=== PATIENT | female | born 1980 | race Caucasian/White ===

== ENCOUNTER 2024-03-04 13:07 | Outpatient (CLI) | payer OTHER, SELFPAY ==
--- NOTE | ~2024-03-04 | MM_ITS ---
EXAMINATION: MM screening ivana BI w ritchie HISTORY: Screening mammogram TECHNIQUE: Craniocaudal and mediolateral oblique 3-D tomosynthesis images were obtained and synthetic 2-D images were generated. CAD analysis was submitted and interpreted. COMPARISON: No prior mammogram is available for comparison at this institution. BREAST PARENCHYMAL COMPOSITION:Dense: The breasts are extremely dense, which lowers the sensitivity o f mammography. FINDINGS: There is asymmetric density at the lower left breast on MLO view, possibly asymmetric fibro glandular tissue. No parenchymal or dural to the right breast seen. No suspicious mesenteric or calci fication. IMPRESSION: Inferior left breast asymmetry, possibly normal asymmetric fibroglandular tissue. Spot compression vi ews and possible ultrasound are advised. BI-RADS Category 0: Incomplete: Needs additional imaging evaluation. Reviewed, dictated and finalized at [facility]. IMPRESSION: Inferior left breast asymmetry, possibly normal asymmetric fibroglandular tissu e. Spot compression views and possible ultrasound are advised. BI-RADS Category 0: Incomplete: Needs additional imaging evaluation.
== END 2024-03-04 13:08 | disposition home or self-care (01) ==
LOC: CHSIMG 13:09
DX: Z12.31 Encounter for screening mammogram for malignant neoplasm of breast (principal); R92.8 Other abnormal and inconclusive findings on diagnostic imaging of breast
CPT/HCPCS: 77063; 77067

== ENCOUNTER 2024-03-22 10:16 | Outpatient (CLI) | payer OTHER, SELFPAY ==
--- NOTE | ~2024-03-22 | MMUS_ITS ---
EXAMINATION: MM diagnostic ivana LT w ritchie, US breast LT limited HISTORY: Follow-up left breast asymmetry TECHNIQUE: Additional 3-D tomosynthesis images of the left breast were performed and synthetic 2-D im ages were generated. CAD analysis was submitted and interpreted. High resolution Limited left breast ultrasound was performed. COMPARISON: 03/04/2024 BREAST PARENCHYMAL COMPOSITION: Dense: The breasts are extremely dense, which lowers the sensitivity of mammography. FINDINGS: MAMMOGRAPHIC FINDINGS: The area of asymmetry inferiorly in the left breast is less dense with spot compression views with no discrete mass identified on tomographic images. No suspicious calcifications or architectural distor tion. ULTRASOUND: Limited left breast ultrasound: Normal heterogeneous echotexture without focal solid or cystic mass. IMPRESSION: 1. No evidence for malignancy in the left breast. 2. Routine yearly screening mammogram and regular clinical breast examination are recommended. BI-RADS Category 1: Negative Reviewed, dictated and finalized at location [facility]. IMPRESSION: 1. No evidence for malignancy in the left breast. 2. Routine yearly screening mammogram and regular clinical breast examination a re recommended. BI-RADS Category 1: Negative
== END 2024-03-22 10:17 | disposition home or self-care (01) ==
DX: R92.8 Other abnormal and inconclusive findings on diagnostic imaging of breast (principal)
CPT/HCPCS: 76642; 77061; 77065; G0279

== ENCOUNTER 2025-05-05 14:16 | Outpatient (CLI) | payer OTHER, SELFPAY ==
--- NOTE | ~2025-05-05 | MM_ITS ---
EXAMINATION: MM screening ivana BI w ritchie HISTORY: Screening TECHNIQUE: Craniocaudal and mediolateral oblique 3-D tomosynthesis images were obtained and synthetic 2-D images were generated. CAD analysis was submitted and interpreted. COMPARISON: Comparison to multiple prior studies sequentially, with oldest reviewed study dated 03/04/2024. BREAST PARENCHYMAL COMPOSITION: Dense: The breasts are extremely dense, which lowers the sensitivity of mammography. FINDINGS: There is no evidence of suspicious mass, calcification, or architectural distortion to suggest malignancy in either breast. There has been no suspicious interval change. IMPRESSION: 1. No mammographic evidence of malignancy. 2. Recommend routine screening mammography in one year. BI-RADS Category 1: Negative Reviewed, dictated and finalized at location B. NING MANAGER
--- OUTSIDE RECORDS SUMMARY | 2025-05-05 18:43 | XMS_ITS | Encounter Summary ---
Author Organization [facility] Health Address [address] [place] [address] Care Team Providers Care Windows 7 Deployment Lead Name Role Phone Pcp, Unknown Primary Care Provider Arcadio Garcia MD Primary Care Provider [phone] Hong Cotton PA-C Primary Care Provider Encounter Details Date Type Department Care Team (Late st Contact Info) Description 08/16/2013 [facility] Unknown, Provider Social History Tobacco Use Types Packs/Day Years Used Date Smoking Tobacco: Former Alcohol Use Standard Drinks/Week Comments No 0 (1 standard drink = 0.6 oz pur e alcohol) Comments No Sex and Gender Information Value Date Recorded Sex Assigned at Female 06/29/2020 7:48 AM LEASE ANALYST Legal Sex Female 9:49 AM LEASE ANALYST Gender Identity Female 06/29/2020 7:48 AM LEASE ANALYST Sexual Orientation Straight 06/29/2020 7: 48 AM LEASE ANALYST documented as of this encounter Functional Status * Functional and Cognitive Status Question Answer Date of Assessment Author Is person deaf or have hilary us hearing difficulty? No 08/17/2013 7:37 PM Bertha Lara APRN-CNP Is person blind or have serious difficulty seeing? No 08/17/2013 7:37 PM LEASE ANALYST Clara Byrne APRN-CNP Does person have serious difficulty walking/climbing stairs? No 08/17/2013 7:37 PM LEASE ANALYST Bertha Byrne, SEMI TRUCK DRIVER-BUSINESS SYSTEMS ADMINISTRATOR Does person have difficulty dressing/bathing? No 08/17/2013 7:37 PM LEASE ANALYST Bertha Byrne, SEMI TRUCK DRIVER-BUSINESS SYSTEMS ADMINISTRATOR Does person have difficulty doing errands alone? No 08/17/2013 7:37 PM LEASE ANALYST Bertha Byrne, SEMI TRUCK DRIVER-BUSINESS SYSTEMS ADMINISTRATOR Does person have difficulty concentrating/remembering/deven ng decisions? No 08/17/2013 7:37 PM LEASE ANALYST Bertha Byrne, SEMI TRUCK DRIVER-BUSINESS SYSTEMS ADMINISTRATOR documented as of this encounter Plan of Treatment Not on file documented as of this encounter Visit Diagnoses Not on filedocumented in this encounter Additional Health Concerns Infection Onset Date Last Indicated Resolved Time COVID-19 Under Investigation 07/04/2021 07/04/2021 07/05/2021 7:20 AM LEASE ANALYST COVID-19 Confirmed 07/04/2021 07/04/2021 4:33 AM LEASE ANALYST documented as of this encounter Care Teams Windows 7 Deployment Lead Relationship Specialty Start Date End Date Pcp, Unknown [place] [address] PCP - General 08/09/13 Arcadio Bustamante MD [place] [address] PCP - General Family Medicine 12/24/13 02/19/21 Hong Cotton PA-C [address] [id number] PCP - General 02/20/21 documented as of this encounter
--- OUTSIDE RECORDS SUMMARY | 2025-05-05 18:43 | XMS_ITS | Clinical Summary ---
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 Family History Medical History Relation Comments Coronary artery disease Father Hypertension Father Relation Status Comments Father Social History Tobacco Use Types Packs/Day Years Used Date Smoking Tobacco: Former Smokeless Tobacco: Never Comments Unknown Sex and Gender Information Value Date Recorded Sex Assigned at Not on file Legal Sex Female 5:43 PM CDT Gender Identity Not on file Sexual Orientation Not on file Last Filed Vital Signs Vital Sign Reading Time Taken Comments Blood Pressure 124/74 11/25/2017 10:07 AM CDT Pulse 73 11/25/2017 10:07 AM CDT Temperature - - Respiratory Rate - - Oxygen Saturation - - Inhaled Oxygen Concentration - - Weight 60.8 kg (134 lb) 11/25/2017 10:07 AM CDT Height 160 cm (5' 3) 11/25/2017 10:07 AM CDT Body Mass Index 23.74 11/25/2017 10:07 AM CDT Plan of Treatment Health Maintenance Due Date Last Done Comments Cervical Cancer Screening Pa p Smear (Age 30 to 64) Every 3 Years 1982 Annual Physical 1985 Hepatitis C 2000 DTaP, Tdap and Td Vaccines ( 1 - Tdap) 2001 Hepatitis B Vaccines (1 of 3 - 19+ 3-dose series) 2001 HPV Vaccines (1 - 3-dose SCD M series) 2009 Cervical Cancer Screening Pa p with HPV Testing (Age 30 to 64) Every 5 Years 2012 Cervical Cancer Screening with HPV 2012 Mammogram Screening 2022 COVID-19 Vaccine (2024-2 6 season) 2025 Influenza Adult (#1) 2025 Hepatitis A Vaccines Aged Out No long er eligible based on patient's age to complete this topic Meningococcal B Vaccine Aged Out No l onger eligible based on patient's age to complete this topic Meningococcal Vaccine Aged Out No kevin truong eligible based on patient's age to complete this topic Pneumococcal Vaccine: Pediat rics (0 to 5 Years) and At-Risk Patients (6 to 49 Years) Aged Out No longer eligible b ased on patient's age to complete this topic RSV Immunizations Under 20 Months Aged Out No longer eligible based on patient's age to complete this topic Care Teams Machine Folder Relationship Specialty Start Date End Date Arcadio Bustamante MD PCP - General FAMILY PRACTICE 04/01/18
--- OUTSIDE RECORDS SUMMARY | 2025-05-05 18:43 | XMS_ITS | Clinical Summary ---
Author Organization [facility] [employer] Address [address] [place] [address] Care Team Providers Care Cable Installer Repairer Name Role Phone Hong Cotton PA-C Primary Care Provider Source Comments [facility] [employer],non-owned Affiliates and Associated Physician Practices is amultiple site organization consisting of ambulatory clinics and hospital sitesin [place], [place], [place] and [place]. This disclosure is being madepursuant to the Care Everywhere program and may not contain all information available regarding this patient. Last updated 18.[facility] [employer] Allergies No known active allergies Medications * Be aware that medications may not be up to date on this document. Alwaysverify current medications with the patient. sertraline (ZOLOFT) 50 MG tabletIndicatio ns:Anxiety,Depr essed mood Start 1/2 tab daily x 1 week the increase to the whole tab 30 tablet 1 1 Active Additional Information Patient taking differently: 100 mg Oral DAILY, Start 1/2 tab daily x 1 week the increase to the whole tab, Reported on 03/21/2021 busPIRone (BUSPAR) 10 MG tablet Take 10 mg by mouth 3 times daily 1 Active folic acid (FOLVITE) 1 MG tablet Take 1 mg by mouth once daily 1 Active ibuprofen (MOTRIN) 800 MG tablet Take 800 mg by mouth as needed 0 Active clonazePAM (KLONOPIN) 1 MG tablet as needed 1 Active hydrOXYzine pamoate (VISTARIL) 50 MG capsule Take 50 mg by mouth as needed 1 Active traZODone (DESYREL) 50 MG tablet Take 50 mg by mouth as needed 1 Active thiamine (VITAMIN B-1) 100 MG tablet Take 100 mg by mouth once daily Active tretinoin (RETIN-A) 0.025 % creamIndication s:Acne vulgaris Apply to affected area at bedtime 45 g 2 1 Active minocycline (MINOCIN) 100 MG capsuleIndicati ons:Acne vulgaris Take 1 (one) capsule by mouth 2 times daily 60 capsule 3 2 Active Active Problems Problem Noted Date Diagnosed Date Sarcoidosis of lung 03/01/2021 Sarcoidosis 07/09/2014 Chest pain 08/17/2013 Mild cervical dysplasia 12/20/2012 Overview (12/20/2012): LGSIL per Pap colpo 2012 Resolved Problems Problem Noted Date Diagnosed Date Resolved Date Encounter for supervision of other normal 07/01/2013 01/23/2014 Overview (04/29/2015): Encounter for supervision of other normal 08/14/2010 04/04/2011 Overview (04/29/2015): O+/I/-/-, HIV NR GCT 119 GBS neg Immunizations Immunization Administration Dates Next Due [place] primary monoval ent 12+ yr 0.3mL Purple cap 07/03/2020,06/13/2020 TDAP (7yrs+) 11/25/2013 Family History Medical History Relation Name Comments CAD (Coronary Artery Disease) Father [place] Hyperlipidemia Father Hypertension Father CAD (Coronary Artery Disease) Maternal Grandfather [place] Hyperlipidemia Maternal Grandfather Hypertension Maternal Grandfather Cancer - Breast Maternal Grandmother Cancer - Colon Maternal Grandmother None Known Mother Cancer Other CAD (Coronary Artery Disease) Paternal Grandfather Hyperlipidemia Paternal Grandfather Hypertension Paternal Grandfather Alzheimer's Disease Paternal Grandmother Relation Name Status Comments Father Alive Maternal Grandfather Maternal Grandmother Alive Mother Alive Other Paternal Grandfather Paternal Grandmother Social History Tobacco Use Types Packs/Day Years Used Date Smoking Tobacco: Former Cigarettes 0.5 5 Smokeless Tobacco: Never Tobacco Cessation:Counseling Given: No Alcohol Use Standard Drinks/Week Comments Yes 0 (1 standard drink = 0.6 oz pur e alcohol) AUDIT-C Answer Date Recorded Q1: How often do you have a drink containing alc ohol? 2-3 times a week 02/28/2021 Q2: How many drinks containi ng alcohol do you have on a typical day when you are drinking? 1 or 2 02/28/2021 Q3: How often do you have si x or more drinks on one occasion? Never 02/28/2021 PHQ-2 Answer Date Recorded PHQ2 TOTAL SCORE 3 03/21/2021 Comments No Sex and Gender Information Value Date Recorded Sex Assigned at Female 06/29/2020 7:48 AM FAMILY COACH Legal Sex Female 9:49 AM FAMILY COACH Gender Identity Female 06/29/2020 7:48 AM FAMILY COACH Sexual Orientation Straight 06/29/2020 7: 48 AM FAMILY COACH Last Filed Vital Signs Vital Sign Reading Time Taken Comments Blood Pressure 120/70 02/28/2021 2:48 PM CDT Pulse 77 02/28/2021 2:48 PM CDT Temperature 37.2 C (99 F) 02/28/2021 2:48 PM CDT Respiratory Rate 18 12/26/2013 8:45 AM CDT Oxygen Saturation 99% 02/28/2021 2:48 PM CDT Inhaled Oxygen Concentration - - Weight 59 kg (130 lb) 03/21/2021 1:16 PM CDT Height 160 cm (5' 3) 02/28/2021 2:48 PM CDT Body Mass Index 23.03 02/28/2021 2:48 PM CDT Plan of Treatment Health Maintenance Due Date Last Done Comments MAMMOGRAM 1982 HEPATITIS C SCREENING 07/26/2000 HEPATITIS B VACCINE (1 of 3 - 19+ 3-dose series) 2001 HPV VACCINE (1 - 3-dose SCDM series) 2009 PAP with HPV 12/20/2017 12/20/2012 Cervical Cancer Screening 05/22/2023 PAP SMEAR 05/22/2023 05/22/2020 (Done Outside Per Patient), 07/18/2015, 06/09/2014, Additional history exists DTAP/TDAP/TD VACCINES (2 - Td or Tdap) 11/26/2023 11/25/2013 DEPRESSION SCREENING 06/22/2024 COVID-19 VACCINE (3 - season) 2025 07/03/2020, 06/13/2020 INFLUENZA VACCINE (#1) 2025 LIPID TESTING 03/02/2026 03/02/2021 ZOSTER VACCINE (1 of 2) 2032 HIV SCREENING Completed 06/24/2013, 07/17/2010 HIB VACCINE Aged Out No longer eligi ble based on patient's age to complete this topic MENINGOCOCCAL (Group B) VACCINE SHARED DECISION-MAKING Aged Out No longer eligible based on patient's age to complete this topic MENINGOCOCCAL GROUPS A/C/Y/W VACCINE Aged Out No longer eligible based on patient's age to complete this topic PNEUMOCOCCAL VACCINE Aged Out No long er eligible based on patient's age to complete this topic Procedures Procedure Name Priority Date/Time Associated Diagnosis Comments LIPID PROFILE Routine 03/02/2021 12:28 PM CDT Encounter for routine adult health examination with abnormal findings PAP THINPREP REFLX HPV MRNA E6/E7 Routine 07/18/2015 1:14 PM FAMILY COACH Well female exam with routine gynecological exam HIV-1 HIV-2 ANTIBODY Routine 06/24/2013 1:27 PM FAMILY COACH Missed period HPV DNA PROBE HIGH RISK 12/20/2012 4:20 PM CDT from Last 3 Months or Most Recently Relevant to Health Maintenance Results * (ABNORMAL) LIPID PROFILE (03/02/2021 12:28 PM CDT) Cholesterol 215(H) <200 mg/dL [facility] HDL Cholesterol 87 > OR = 50 mg/dL [facility] Triglycerides 85 <150 mg/dL [facility] LDL Calculated 110(H) mg/dL (calc) [facility] Comment: Reference range: <100 Desirable range <100 mg/dL for primary prevention; <70 mg/dL for patients with CHD or diabetic patients with > or = 2 CHD risk factors. LDL-C is now calculated using the Nick-Newberry calculation, which is a validated novel method providing better accuracy than the Friedewald equation in the estimation of LDL-C. Nick SS et al. SARA. 2013;310(19): 7855-4291 (http://education.Easel/faq/MAO624) CHOL/HDLC RATIO 2.5 <5.0 (calc) [facility] Non HDL Cholesterol 128 <130 mg/dL (calc) [facility] Comment: For patients with diabetes plus 1 major ASCVD risk factor, treating to a non-HDL-C goal of <100 mg/dL (LDL-C of <70 mg/dL) is considered a therapeutic option. Test Performed at: [email or web address] [address] [place] [address] CAMERON CUMMINS DO,MPH Blood BLOOD SPECIMEN / Unknown 03/02/2021 12:28 PM CDT 03/02/2021 12:30 PM CDT Hong Cotton PA-C LAB - CHEMISTRY ORDERA BLES Final Result [place] [address] [place] [address] * PAP THIN PREP REFLX HPV (PO REF LAB) (07/18/2015 1:14 PM FAMILY COACH) Clinical Information [facility] Comment: Routine exam intrauterine contraceptive device LMP [facility] Comment:INFORMATION NOT PROV IDED Previous Pap [facility] Comment:INFORMATION NOT PROV IDED Prev. BX [facility] Comment:INFORMATION NOT PROV IDED Source [facility] Comment:Cervix Statement of Adequacy [facility] Comment: Satisfactory for evaluation. Endocervical/transformation zone component present. Interpretation/Resul t [facility] Comment:Negative for intraep ithelial lesion or malignancy. Comment [facility] Comment: This Pap test has been evaluated with computer assisted technology. Business Planning Director [facility] Comment: MARIVEL, CT(ASCP) CT screening location: [place] [address] [place] [address] Review Business Planning Director [facility] Comment: LMT, CT(ASCP) CT screening location: [place] [address] [place] [address] Test Performed at: [facility] [address] [place] [address] BREANNE CALDERON MD PART OF UTERINE CERVIX / Unknown 07/18/2015 1:14 PM FAMILY COACH 07/19/2015 6:28 AM FAMILY COACH Bassam Boggs MD LAB - PATHOLOGY/CYTOLOGY ORD ERABLES Final Result Performing Organization Address [facility] de Phone Number [facility] [address] [place] [address] * HIV-1 HIV-2 ANTIBODY (06/24/2013 1:27 PM FAMILY COACH) Pathologist [facility] HIV-1/HIV-2 NON-REACTI VE NON-REACT TEJINDER [facility] Comment: A Nonreactive HIV-1/2 antibody result does not exclude HIV infection since the time frame for seroconversion is variable. If acute HIV infection is suspected, antibody retesting and nucleic acid amplification (HIV DNA/RNA) testing is recommended. Test Performed at: [facility] [address] [place] [address] CAMERON CUMMINS DO,MPH Blood specimen (specimen) BLOOD SPECIMEN / Unknown 06/24/2013 1:27 PM FAMILY COACH 06/24/2013 1:28 PM FAMILY COACH Bassam Boggs MD LAB - CHEMISTRY ORDERABLES F inal Result Performing Organization Address [facility] de Phone Number [address] [address] * (ABNORMAL) HPV DNA PROBE HIGH RISK (12/20/2012 4:20 PM CDT) [facility] Human papillomavirus DNA High Risk DETECTED( A) NOT DETECTED [facility] Comment: High-risk HPV types 16,18,31,33,35,39,45,51,52,56, 58,59, or 68 may cause cervical cancer or its precursors. The analytical performance characteristics of this assay, when used to test [employer] or vaginal specimens, have been determined by [employer]. Methodology: Hybrid Capture with Signal Amplification. Test Performed at: [facility] [address] [place] [address] CAMERON CUMMINS DO, MPH 12/20/2012 4:20 PM CDT 12/20/2012 10:25 PM CDT Bassam Boggs MD LAB - MICROBIOLOGY ORDERABLE S Final Result [facility] [id number] [place] [address] from Last 3 Months or Most Recently Relevant to Health Maintenance Insurance [facility] Advance Directives * Full Code (Latest Code Status on File) Date Activated Date Inactivated Comments 12/24/2013 12:52 PM 12/26/2013 1:13 PM * Full Code Date Activated Date Inactivated Comments 08/17/2013 7:44 PM 08/18/2013 3:05 PM * FULL RESUSCITATION Date Activated Date Inactivated Comments 02/22/2011 11:09 AM 02/25/2011 12:03 AM Care Teams Cable Installer Repairer Relationship Specialty Start Date End Date Hong Cotton PA-C [address] [id number] PCP - General 02/20/21
== END 2025-05-05 14:17 | disposition home or self-care (01) ==
PROVIDERS: PCP Nurse Practitioner Family; Visit Provider Nurse Practitioner Family
DX: Z12.31 Encounter for screening mammogram for malignant neoplasm of breast (principal)
CPT/HCPCS: 77063; 77067